=== PATIENT | female | born 1945 | race Caucasian/White ===

== ENCOUNTER → 2017-06-27 | Outpatient (CLI) | payer OTHER ==
[2015-12-27 10:45] VITALS: BP 138/76
--- NOTE | 2017-06-27 16:23 | MG ---
HISTORY: Right lateral breast pain status post remote bilateral mastectomy and reconstruction; breas t and colon carcinoma Bilateral digital diagnostic mammography with CAD and right breast ultrasound. Comparison: None FINDINGS: Mammogram: Bilateral CC and MLO projections of the right and left breast were obtained utilizing both full-field and push back techniques with bilateral subpectoral saline implants appearing grossly int act. Patient has undergone previous bilateral mastectomy with subpectoral saline implant reconstruct ion. No suspicious architectural distortion, mass or clustered microcalcifications can be observed t o suggest malignancy. No skin thickening or nipple retraction is appreciated. No pathological lymp hadenopathy can be identified. Benign-appearing calcifications are noted within the right and left br east. Ultrasound: Multiple grayscale and color Doppler images were obtained in the region of interest at 9 o'clock approximately 6 cm from the nipple where there is an underlying horizontally oriented macro l obulated but predominantly smoothly marginated and well circumscribed 1 cm hypoechoic nodule with pos terior acoustical enhancement and no internal Doppler flow favored to represent a mildly complex cyst with internal debris. A postoperative seroma or focus of extracapsular rupture could conceivably giv e this appearance as well. Although considered less likely, a necrotic lymph node cannot be excluded. No suspicious solid mass is identified. IMPRESSION: Probably benign mildly complex fluid collection in the region of interest for which thre e-month sonographic follow-up is recommended. However, in the setting of clinically suspicious palpab le findings, ultrasound-guided aspiration could be performed. Breast MRI without and with contrast wo uld be an option as well. ACR CATEGORY 3 - probably benign findings; short interval follow-up suggested. Diagnostic CAD was utilized and reviewed. * 0 (ZERO) - ASSESSMENT INCOMPLETE; ADDITIONAL IMAGING IS NEEDED. * 1/1 (ONE) - NEGATIVE. * 2/II (TWO) - BENIGN FINDINGS. * 3/III (THREE) - PROBABLY BENIGN FINDING; SHORT INTERVAL FOLLOW-UP SUGGESTED. * 4/IV (FOUR) - SUSPICIOUS ABNORMALITY; BIOPSY SHOULD BE CONSIDERED. * 5/V - HIGHLY SUSPICIOUS OF MALIGNANCY; BIOPSY SHOULD BE PERFORMED. A NEGATIVE X-RAY REPORT SHOULD NOT DELAY BIOPSY IF A DOMINANT OR CLINICALLY SUSPICIOUS MASS IS PRESENT; 4 TO 8 PERCENT OF CANCERS ARE NOT IDENTIFIED BY X-RAY. A NEGA TIVE REPORT MAY REINFORCE THE CLINICAL IMPRESSION. ADENOSIS AND DENSE BREASTS MAY OBSCURE AN UNDERLY ING NEOPLASM. Reported By:
== END ==
LOC: RAD 13:21
PROVIDERS: ATTEND Nurse Practitioner Family
DX: N64.4 Mastodynia (principal)
CPT/HCPCS: 76642; 77066